=== PATIENT | male | born 1990 | race Caucasian/White ===

== ENCOUNTER 2017-12-05 20:50 | Emergency (ER) | payer MEDICAID ==
[~2017-12-05] VITALS: Ht 175.3 cm; Wt 83.6 kg
[2017-12-05 20:53] VITALS: Ht 175.3 cm; Wt 83.6 kg
[2017-12-05 23:41] LABS: BASOPHIL % 0.5 % (0-2); PLATELET COUNT 267 x10^3mcL (130-400); RED CELL DISTRIBUTION WIDTH 12.2 % (11.5-14.5)
[2017-12-05 23:46] VITALS: BP 110/68
[2017-12-05 23:55] LABS: CARBON DIOXIDE 25.4 mmol/L (21-32); CHLORIDE SERUM 101 mmol/L (98-107); CREATININE SERUM 0.7 mg/dL (0.7-1.3); GFR1 > 60 mL/min; GLUCOSE SERUM 98 mg/dL (74-106); POTASSIUM SERUM 3.4 mmol/L (3.5-5.1); SODIUM SERUM 128 mmol/L (136-145)
[2017-12-05 23:57] LABS: ALBUMIN 3.9 g/dL (3.4-5.0); ALKALINE PHOSPHATASE 45 U/L (46-116); ALT/SGPT 9 U/L (16-63); AST/SGOT 13 U/L (15-37); TOTAL PROTEIN, SERUM 7.4 g/dL (6.4-8.2)
== END 2017-12-06 00:10 | disposition home or self-care (01) ==
LOC: ED 20:50
PROVIDERS: Specialist
DX: R07.89 Other chest pain (principal)
CPT/HCPCS: J1885; Q0092